=== PATIENT | female | born 1950 | race Caucasian/White ===

== ENCOUNTER → 2017-11-06 | Outpatient (CLI) | payer OTHER ==
--- NOTE | 2017-11-06 15:59 | RAD ---
HISTORY: Hip pain, low back pain radiating down legs Study: Two views of the hips Comparison: None Findings: There are arthritic changes of the bilateral hips with mild joint space narrowing and subchondral scl erosis of the acetabular roof. No erosions are seen. No acute fracture or dislocation. The soft tissu es are unremarkable. IMPRESSION: 1. Degenerative changes of the hips without acute osseous abnormality. Reported By:
--- NOTE | 2017-11-06 16:42 | RAD ---
HISTORY: Low back pain radiating down both legs Study: AP and lateral lumbar spine Comparison: None Findings: Five lumbar type vertebra present. Moderate to moderately severe facet degeneration is noted at L4/L 5 predominating on the left with moderate at L5/S1, predominating on the right. Minimal lateral spur ring is noted at a few levels. Moderate disc space narrowing is present at L3/L4 and L4/L5 with mild at L2/L3 and L5/S1. Mild anterior spurring is present at several levels. No acute bony abnormaliti es are identified. IMPRESSION: 1. Lumbar spondylosis as described above. 2. No acute bony abnormalities are identified. Reported By:
== END ==
LOC: RAD 15:19
PROVIDERS: ATTEND Nurse Practitioner Family
DX: M54.17 Radiculopathy, lumbosacral region (principal); M25.551 Pain in right hip; M25.552 Pain in left hip
CPT/HCPCS: 72100; 73521

== ENCOUNTER → 2017-11-14 | Outpatient (CLI) | payer OTHER ==
--- NOTE | 2017-11-14 10:20 | MRI ---
Indication: Back pain Exam: MRI lumbar spine without contrast. Technique: Routine multiplanar multisequence imaging was performed through the lumbar spine. Findings: The lumbar vertebra are well aligned. There is moderate disc space narrowing throughout wit h mild marginal osteophytes throughout and diffuse moderate disc desiccation. The vertebral body heig ht is well maintained throughout. There are moderate endplate degenerative changes at L4-5 and T11-12 . There is a small central disc bulge at L2-3 causing mild dural sac effacement . There is a mild to moderate central disc bulge at L3-4 causing moderate anterior dural sac effacement and mild neurofor aminal narrowing bilaterally. There is a moderate asymmetric disc bulge at L4-5 lateralizing to the l eft causing moderate anterolateral dural sac effacement and mild neuroforaminal narrowing on the left . There is a small central disc bulge at L5-S1. There are moderate hypertrophic changes facets throug hout with ligament flavum hypertrophy causing diffuse mild spinal stenosis throughout. No pars defect s are seen. The paravertebral soft tissues are normal. Impression: Moderately severe multilevel degenerative disc disease which is most prominent at L4-5 with no acute abnormality seen. Moderate asymmetric disc bulge at L4-5 lateralizing to the left . [id number] central disc bulge at L3-4 . Small central disc bulges at L2-3 and L5-S1. Moderate osteoarthritic changes of the facets throughout causing diffuse mild spinal stenosis. Reported By:
== END ==
LOC: RAD 08:41
PROVIDERS: ATTEND Nurse Practitioner Family
DX: M54.17 Radiculopathy, lumbosacral region (principal); M51.36 Other intervertebral disc degeneration, lumbar region; M51.26 Other intervertebral disc displacement, lumbar region
CPT/HCPCS: 72148